=== PATIENT | female | born 2000 | race Two or more races ===

== ENCOUNTER → 2019-04-21 | Emergency (ER) | payer MEDICAID ==
[~2019-04-21] VITALS: Ht 149.9 cm; Wt 43.1 kg
[~2019-04-21] MED LIST: HYDROcodone-ACET 10/325MG TAB PO ONE; IBUPROFEN 800 MG TAB PO ONE; ONDANSETRON ODT 4 MG TAB PO ONE
[2019-04-21 18:22] VITALS: BP 119/84
== END | disposition home or self-care (01) ==
LOC: ER 18:13
DX: S06.0X1A Concussion with loss of consciousness of 30 minutes or less, initial encounter (principal); S80.212A Abrasion, left knee, initial encounter; W18.00XA Striking against unspecified object with subsequent fall, initial encounter; Y93.89 Activity, other specified; Y92.89 Other specified places as the place of occurrence of the external cause; Y99.8 Other external cause status
CPT/HCPCS: 70450; 73560; 74176; 99285; Q0162

== ENCOUNTER → 2019-08-22 | Emergency (ER) | payer MEDICAID ==
[~2019-08-22] VITALS: Ht 149.9 cm; Wt 43.1 kg
[~2019-08-22] MED LIST changes: +ALPRAZolam 0.5 MG TAB PO ONE; -HYDROcodone-ACET 10/325MG TAB PO ONE; -IBUPROFEN 800 MG TAB PO ONE; -ONDANSETRON ODT 4 MG TAB PO ONE
[2019-08-22 08:42] VITALS: BP 126/79
== END | disposition home or self-care (01) ==
LOC: ER 03:22
DX: F41.1 Generalized anxiety disorder (principal)

== ENCOUNTER 2019-11-12 11:13 | Emergency (ER) | payer MEDICAID ==
[~2019-11-12] VITALS: Ht 149.9 cm; Wt 45.8 kg
[2019-11-12 12:16] LABS: Urine Bacteria FEW /hpf (None Seen); Urine Blood Negative /uL (Negative); Urine Mucus FEW (None Seen); Urine Specific Gravity 1.017 (1.001-1.035); Urine WBC 9 /hpf (0 - 5)
[2019-11-12 12:33] VITALS: BP 100/58
== END 2019-11-12 12:56 | disposition home or self-care (01) ==
LOC: ER 11:13
DX: O23.41 Unspecified infection of urinary tract in pregnancy, first trimester (principal); Z3A.01 Less than 8 weeks gestation of pregnancy
CPT/HCPCS: 36415; 81001; 84702